=== PATIENT | male | born 1970 | race Caucasian/White ===

== ENCOUNTER 2020-12-05 04:02 | Emergency (ER) | payer OTHER ==
[2020-12-05] MEDS ORDERED: CHERRY SYRUP 10 ML UDC PO ONE (04:10)
[2020-12-05] MEDS ORDERED: DEXAMETHASONE 10 MG/ML VIAL PO STA (04:10)
[2020-12-05] MEDS ORDERED: diphenhydrAMINE INJ 50 MG/ML VIAL IM STA (04:10)
--- NOTE | 2020-12-05 04:37 | ED Physician Documentation ---
History of Present Illness - Stated complaint Stated Complaint: ALLERGIC REACTION - Chief complaint Chief Complaint: Allergic Rx - History obtained from History obtained from: Patient - History of Present Illness Timing: Today - Additonal information Additional information: 50-year-old male with a history of gout has been taking some ibuprofen for some pain in the bottom of his right foot which does not appear to be gout appears to be may be some plantar fasciitis. He is not gotten much resolution of this over the past month. This morning he awoke with some itching to his hands and the side of his body and then noticed that his chin was swollen his lips were swollen and he is come to the [facility]. He took 25 mg of Benadryl. He has not had any shortness of breath he denies any difficulty with breathing at all. He is not on an PORTIA inhibitor is never been on medications other than the ibuprofen for his gout. He is plegic previously taken some prednisone. He did not feel ill recently had some leak soup for dinner last night nothing that he has not had previously. Review of Systems Constitutional: denies: Fever, Chills, Myalgias Eyes: denies: Decreased vision Ears: denies: Ear pain Nose: denies: Rhinorrhea / runny nose, Congestion Throat: reports: Other (swollen tongue and chin). denies: Sore throat Cardiac: denies: Chest pain / pressure, Palpitations Respiratory: denies: Dyspnea, Cough, Wheezing GI: denies: Abdominal Pain, Nausea, Vomiting, Constipation, Diarrhea : denies: Dysuria, Frequency Skin: reports: Rash (urticaria to the trunk swelling of lips and tongue) Musculoskeletal: denies: Neck pain, Back pain, Extremity pain Neurologic: denies: Generalized weakness, Numbness PD PAST MEDICAL HISTORY - Past Medical History Past Medical History: No - Past Surgical History Past Surgical History: No - Present Medications Home Medications: Ambulatory Orders Medication Instructions Recorded Confirmed No Known Home Medications 12/05/20 12/05/20 - Allergies Allergies/Adverse Reactions: Allergies Allergy/AdvReac Type Severity Reaction Status Date / Time ibuprofen Allergy Edema Verified 12/05/20 05:46 - Social History Does the pt smoke?: No Smoking Status: Never smoker Does the pt drink ETOH?: No Does the pt have substance abuse?: No - Immunizations Immunizations are current?: Yes PD ED PE NORMAL - Vitals Vital signs reviewed: Yes (hypertensive ) - General General: Alert and oriented X 3, No acute distress, Well developed/nourished - HEENT HEENT: Atraumatic, PERRL, EOMI, Other (The patient pulses mass down there is obvious swelling to his lips his tongue and the sublingual area as well. There is no uvular swelling.) - Neck Neck: Supple, no meningeal sign, No bony TTP - Cardiac Cardiac: RRR, No murmur - Respiratory Respiratory: No respiratory distress, Clear bilaterally - Abdomen Abdomen: Normal bowel sounds, Soft, Non tender, Non distended, No organomegaly - Back Back: No CVA TTP, No spinal TTP - Derm Derm: Normal color, Warm and dry, Other (There are small migrating urticaria especially on the right trunk.) - Extremities Extremities: No deformity, No edema, Other (minimal tenderness to the plantar surface of the right foot distal mid surface. no mass appreciated. ) - Neuro Neuro: Alert and oriented X 3, scientific artist 2-12 intact, No motor deficit, No sensory deficit, Normal speech Eye Opening: Spontaneous Motor: Obeys Commands Verbal: Oriented GCS Score: 15 - Psych Psych: Normal mood, Normal affect Results - Vitals Vitals: Vital Signs - 24 hr 12/05/20 12/05/20 12/05/20 04:18 04:52 05:22 Temperature 36.9 C 36.5 C 36.8 C Heart Rate 90 75 71 Respiratory 14 15 14 Rate Blood Pressure 142/94 H 134/94 H 128/83 H O2 Saturation 100 96 98 12/05/20 05:44 Temperature 36.6 C Heart Rate 68 Respiratory 15 Rate Blood Pressure 132/83 H O2 Saturation 97 Oxygen O2 Source Room air - Rads (name of study) foot Radiology: Prelim report reviewed (Impression: No acute bony abnormality. Heel spur. 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 He has some urticaria as well and the suspicion is this is a generalized allergic reaction. He is administered dexamethasone 10 mg orally and 25 mg of Benadryl IM. He has previously taken 25 mg of Benadryl orally. By one hour and 40 minutes the patient has notable improvement in his swelling and is discharged to home. Departure - Departure Disposition: 01 Home, Self Care Clinical Impression: [id number] Qualifiers: Encounter type: initial encounter Qualified Code(s): T78.3XXA - Angioneurotic edema, initial encounter Condition: Stable Instructions: ED Allergic Reaction General Other, ED Angioedema Comments: Today it appears you are having an allergic reaction and the suspect is Ibuprofen. Discontinue the Ibuprofen and take benadryl 25mg every 6 hours for the next 2 days. Discharge Date/Time: 12/05/20 05:51
[2020-12-05 05:45] VITALS: BP 132/83
--- NOTE | 2020-12-05 08:56 | XRAY Report ---
PROCEDURE: Foot 3 View RT INDICATIONS: mid-distal plantar pain TECHNIQUE: 3 views of the foot were acquired. COMPARISON: None FINDINGS: Bones: No fractures or dislocations. No suspicious bony lesions. Soft tissues: No tibiotalar joint effusion. Achilles tendon appears normal. IMPRESSION: No acute fracture. No osseous lesion. If symptoms and/or clinical suspicion for pathology continue, f urther assessment with repeat plain films, or advanced imaging (e.g., CT, MRI, or bone scan) is recom mended for further assessment. Reviewed by: Reji Casas MD on 12/05/2020 8:54 AM [facility] Approved by: Reji aCsas MD on 12/05/2020 8:54 AM PST Station ID: [id number]
== END 2020-12-05 05:51 | disposition home or self-care (01) ==
LOC: ED 04:02
DX: T78.3XXA Angioneurotic edema, initial encounter (principal)
CPT/HCPCS: 73630; 96372; 99283; 99284; A9270; J1200

== ENCOUNTER 2021-01-31 09:36 | Outpatient (CLI) | payer OTHER ==
--- NOTE | 2021-01-31 10:25 | XRAY Report ---
PROCEDURE: Foot 3 View RT INDICATIONS: RIGHT FOOT PAIN TECHNIQUE: 3 views of the foot were acquired. COMPARISON: None FINDINGS: Bones: No fractures or dislocations. 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 Well-defined plan tar calcaneal enthesophyte is also seen. No suspicious bony lesions. Soft tissues: No tibiotalar joint effusion. Achilles tendon appears normal. IMPRESSION: No right foot fracture or dislocation. Mild first MTP joint osteoarthritis and well-defined plantar c alcaneal enthesophyte. Reviewed by: Dorian Simons MD on 01/31/2021 10:24 AM PDT Approved by: Dorian Simons MD on 01/31/2021 10:24 AM PDT Station ID: [id number]
== END 2021-01-31 09:37 | disposition home or self-care (01) ==
LOC: DI.N 09:36
PROVIDERS: ATTEND Family Medicine
DX: M79.671 Pain in right foot (principal); M19.071 Primary osteoarthritis, right ankle and foot; M77.31 Calcaneal spur, right foot